=== PATIENT | male | born 1980 | race Hispanic/Latino ===

== ENCOUNTER 2017-10-22 23:04 | Emergency (ER) | payer OTHER ==
[2017-10-22] MEDS ORDERED: FAMOTIDINE 20MG TAB 20 MG TAB ONE (23:57)
[2017-10-22] MEDS ORDERED: METHYLPREDNISOLONE SOD SUCC 40MG/ML 1ML ONE (23:57)
== END 2017-10-23 00:39 | disposition home or self-care (01) ==
LOC: EDH 23:04
DX: T78.49XA Other allergy, initial encounter (principal); E78.5 Hyperlipidemia, unspecified; X58.XXXA Exposure to other specified factors, initial encounter
CPT/HCPCS: 96372; 99283; J2920